=== PATIENT | male | born 1950 | race Caucasian/White ===

== ENCOUNTER 2020-10-13 10:01 | Emergency (ER) | payer BC, OTHER ==
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
[2020-10-13] MEDS ORDERED: Iopamidol-370 76% 500 ML 1 ML ONE (11:40)
== END 2020-10-13 13:15 | disposition home or self-care (01) ==
LOC: ERS 10:01
DX: S00.81XA Abrasion of other part of head, initial encounter (principal); V89.2XXA Person injured in unspecified motor-vehicle accident, traffic, initial encounter
CPT/HCPCS: 70450; 71260; 72125; 74177; G0390; Q9967